=== PATIENT | female | born 1980 | race Two or more races ===

== ENCOUNTER 2025-09-27 11:35 | Emergency (ER) | payer MEDICAID, OTHER ==
[~2025-09-27] VITALS: Ht 172.7 cm; Wt 86.9 kg
--- NOTE | 2025-09-27 11:43 | ECG ---
[facility] Test Date: 2025-09-27 Test Time: 11:42:08 Pat Name: RAFAEL URIOSTEGUI Department: Room: Gender: F Tractor Operator Helper: GENE : 1980 Requested By: EMERGENCY EMERGENCY Order Number: [id number] Reading MD: Christiano Dominique Measurements Intervals [place] Rate: 107 P: 67 [place]: 142 QRS: 46 QRSD: 92 T: -44 QT: 333 QTc: 445 Interpretive Statements Sinus tachycardia Nonspecific T abnormalities, inferior leads Electronically Signed On 09-30-2025 15:41:54 PST by Christiano Dominique Please click the below link to view image of tracing.
[2025-09-27 12:12] LABS: Hematocrit 47.3 % (36.0-46.0); Hemoglobin 15.9 g/dL (12.2-16.2); Mean Corpuscular Hemoglobin 30.3 pg (28.0-32.0); Mean Corpuscular Volume 89.9 fL (80.0-100.0); Nucleated Red Blood Cells % 0.0 %
--- NOTE | 2025-09-27 12:17 | ED.PDOC ---
HPI Comments 45 y/o F, with no prior cardiac history presents to the ED for CC of chest pain. Patient states, she has been experiencing left-sided non-radiating chest pain with associated palpitations sudden onset, last night (09/26/25). Patient reports, to have restarted taking Wegovy for weight loss on Friday (09/23/25), and has had associated symptoms of intermittent nausea, vomiting, diarrhea since then. Patient denies shortness of breath, dizziness, headache, fever, chills, or cough. No other symptoms or modifying factors are present at this time. Chief Complaint: Chest Pain Time Seen by MD: 12:00 Reviewed Notes: Nurses Notes, Medications, Allergies Allergies: Coded Allergies: NO KNOWN ALLERGIES (Unverified , 09/27/25) Home Meds Active Scripts Ondansetron Odt 4MG Tab (ZOFRAN PO) 4 Mg Tb, 4 MG PO Q6HR for 3 Days, #12 TAB ODT TAB-DISSOLVE IN MOUTH, THEN SWALLOW Prov:CARLA CROWELL MD 09/27/25 Information Source: Patient Mode of Arrival: Ambulatory Severity: Moderate Timing: Hours Duration: Since onset Prehospital treatment: None Location: Chest (L) Radiation: No Radiation Onset: At Rest Cardiac Risk Factors: None PE Risk Factors: None History of: None Modifying Factors: Nothing Associated Signs and Symptoms: Palpitations Past Medical History PAST MEDICAL HISTORY: Denies Surgical History: Denies all surgeries 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 Hx Family History Family History: Unknown Social History Smoker: Non-Smoker Alcohol: Denies ETOH Use Drugs: Denies Drug Use Lives In: Home Constitutional: denies: chills, diaphoresis, fatigue, fever, malaise, sweats, weakness, others EENTM: denies: blurred vision, double vision, ear bleeding, ear discharge, ear drainage, ear pain, ear ringing, eye pain, eye redness, hearing loss, mouth pain, mouth swelling, nasal discharge, nose bleeding, nose congestion, nose pain, photophobia, tearing, throat pain, throat swelling, voice changes, others Respiratory: denies: cough, hemoptysis, orthopnea, SOB at rest, shortness of breath, SOB with excertion, stridor, wheezing, others Cardiovascular: reports: chest pain, palpitations; denies: dizzy spells, diaphoresis, Dyspnea on exertion, edema, irregular heart beat, left arm pain, lightheadedness, PND, syncope, others Gastrointestinal: reports: diarrhea, nausea, vomiting; denies: abdomen distended, abdominal pain, blood streaked bowels, constipated, dysphagia, difficulty swallowing, hematemesis, melena, poor appetite, poor fluid intake, rectal bleeding, rectal pain, others Genitourinary: denies: abnormal vagina bleeding, burning, dyspareunia, dysuria, flank pain, frequency, hematuria, incontinence, pain, , vagina discharge, urgency, others Neurological: denies: dizziness, fainting, headache, left sided numbness, left sided weakness, numbness, paresthesia, pre-existing deficit, right sided numbness, right sided weakness, seizure, speech problems, tingling, tremors, weakness, others Musculoskeletal: denies: back pain, gout, joint pain, joint swelling, muscle pain, muscle stiffness, neck pain, others Integumetry: denies: bruises, change in color, change in hair/nails, dryness, laceration, lesions, lumps, rash, wounds, others Allergic/Immunocompromised: denies: Difficulty Healing, Frequent Infections, Hives, Itching, others Hematologic/Lymphatic: denies: anemia, blood clots, easy bleeding, easy bruising, swollen glands, others Endocrine: denies: excessive hunger, excessive sweating, excessive thirst, excessive urination, flushing, intolerance to cold, intolerance to heat, unexplained weight gain, unexplained weight loss, others Psychiatric: denies: anxiety, bipolar disorder, depression, hopeless, panic disorder, schizophrenia, sleepless, suicidal, others All Other Systems: Reviewed and Negative Physical Exam General Appearance: None, Normal HEENT: Normal ENT Inspection, Pharynx Normal Neck: Non-Tender, Normal Inspection Respiratory: No Accessory Muscle Use, No Respiratory Distress, Normal Breath Sounds Cardiovascular: No Edema, Normal Peripheral Pulses, Regular Rate/Rhythm Breast Exam: Deferred Gastrointestinal: Non Tender, Normal Bowel Sounds, Soft Genitalia: Deferred Pelvic: Deferred Rectal: Deferred Extremities: Normal capillary refill, Normal inspection, Normal range of motion, Non-tender Neurologic: Alert, No Motor Deficits, No Sensory Deficits Cerebellar Function: Normal Reflexes: NOT DONE Skin: Normal Color Lymphatic: No Adenopathy EKG EKG : Pulse Rate (adult): 107 [place]: Normal Cardiac Rhythm: ST Block: None Hypertrophy: None ST: Normal Was a procedure done? Was a procedure done?: No CP Differential Dx Differential Diagnosis: Electrolyte Disorder, Sinus Tachycardia Differential Diagnosis: Chest Wall Pain, Costochondritis, Esophageal reflux/spasm, Gastritis X-Ray, Labs, Meds, VS Vital Signs Date Time Temp Pulse Resp B/P (MAP) Pulse Ox O2 Delivery O2 Flow Rate FiO2 09/27/25 17:14 107 09/27/25 15:40 105 16 118/90 (99) 97 09/27/25 13:59 102 09/27/25 13:52 98.0 110 16 126/92 (103) 97 98.0 09/27/25 13:52 110 09/27/25 12:34 102 09/27/25 11:42 107 09/27/25 11:41 98.0 108 19 116/77 98 98.0 Lab Test 09/27/25 16:20 09/27/25 14:53 09/27/25 13:04 09/27/25 11:48 Range/Units Urine Test Negative Negative Troponin I High Sensitivity < 3 L < 3 L < 3 L </=34 ng/L White Blood Count 14.0 H 4.4-10.8 10^3/uL Red Blood Count 5.25 H 4.0-5.20 10^6/uL Hemoglobin 15.9 12.2-16.2 g/dL Hematocrit 47.3 H 36.0-46.0 % Mean Corpuscular Volume 89.9 80.0-100.0 fL Mean Corpuscular Hemoglobin 30.3 28.0-32.0 pg Mean Corpuscular Hemoglobin Concent 33.7 32.0-36.0 g/dL Red Cell Distribution Width 13.5 11.8-14.3 % Platelet Count 219 140-450 10^3/uL Mean Platelet Volume 9.8 6.9-10.8 fL Neutrophils (%) (Auto) 77.0 37.0-80.0 % Lymphocytes (%) (Auto) 10.8 10.0-50.0 % Monocytes (%) (Auto) 8.7 0.0-12.0 % Eosinophils (%) (Auto) 3.0 0.0-7.0 % Basophils (%) (Auto) 0.5 0.0-2.0 % Neutrophils # (Auto) 10.8 H 1.6-8.6 10 ^3/uL Lymphocytes # (Auto) 1.5 0.4-5.4 10 ^3/uL Monocytes # (Auto) 1.2 0-1.3 10 ^3/uL Eosinophils # (Auto) 0.4 0-0.8 10 ^3/uL Basophils # (Auto) 0.1 0-0.2 10 ^3/uL Nucleated Red Blood Cells 0.0 % Sodium Level 141 136-145 mmol/L Potassium Level 3.9 3.5-5.1 mmol/L Chloride Level 101 98-107 mmol/L Carbon Dioxide Level 26 20-31 mmol/L Anion Gap 14 5-15 Blood Urea Nitrogen 10 9-23 mg/dL Creatinine 0.75 0.550-1.02 mg/dL Glomerular Filtration Rate Calc 100 >90 mL/min BUN/Creatinine Ratio 13.3 10.0-20.0 Serum Glucose 83 74-106 mg/dL Calcium Level 9.6 8.7-10.4 mg/dL Current Medications Medications (Trade) Dose Ordered Sig/Juan A Route Start Time Stop Time Status Last Admin Sodium Chloride 1,000 ml @ 1,000 mls/hr Q1H ONCE IV 09/27/25 12:15 09/27/25 13:14 DC 09/27/25 14:17 Famotidine (Pepcid Injection) 20 mg ONCE ONCE IV 09/27/25 12:15 09/27/25 12:16 DC 09/27/25 14:25 Ondansetron HCl (Zofran) 4 mg ONCE ONCE IV 09/27/25 12:15 09/27/25 12:16 DC 09/27/25 14:25 Al Hydrox/Mg Hydrox/Simethicone (Maalox Plus) 30 ml ONCE ONCE PO 09/27/25 12:15 09/27/25 12:16 DC 09/27/25 14:16 Lidocaine HCl (Xylocaine 2% Viscous) 10 ml ONCE ONCE PO 09/27/25 12:15 09/27/25 12:16 DC 09/27/25 14:17 Time of 1ST Reevaluation: 12:30 Reevaluation 1ST: Unchanged Patient Education/Counseling: Diagnosis, Treatment Family Education/Counseling: No Family Present SEPSIS Sepsis Screen Date sepsis recognized/suspect: Sep 27, 2025 Time Sepsis recognized/suspect: 1141 Recent Procedure: No On Antibiotic Therapy: No Respiratory Rate >20: No Heart Rate >90: Yes Temp<36 C (96.8 F) or >38.3 C: No SBP <90 or MAP <65 mmHG: No New Acute Mental Status Change: No Is the patient on CPAP, BIPAP,: No Physician Orders Chest Xray 1 View (09/27/25 17:57) Electrocardigram (09/27/25 12:36) Electrocardigram (09/27/25 14:36) Vital Signs Date Time Temp Pulse Resp B/P (MAP) Pulse Ox O2 Delivery O2 Flow Rate FiO2 09/27/25 17:14 107 09/27/25 15:40 105 16 118/90 (99) 97 09/27/25 13:59 102 09/27/25 13:52 98.0 110 16 126/92 (103) 97 98.0 09/27/25 13:52 110 09/27/25 12:34 102 09/27/25 11:42 107 09/27/25 11:41 98.0 108 19 116/77 98 98.0 Laboratory Tests Test 09/27/25 11:48 White Blood Count 14.0 10^3/uL (4.4-10.8) H Medications Medications Dose Ordered Sig/Juan A Route Start Time Stop Time Status Last Admin Dose Admin Al Hydrox/Mg Hydrox/Simethicone 30 ml ONCE ONCE PO 09/27/25 12:15 09/27/25 12:16 DC 09/27/25 14:16 Famotidine 20 mg ONCE ONCE IV 09/27/25 12:15 09/27/25 12:16 DC 09/27/25 14:25 Lidocaine HCl 10 ml ONCE ONCE PO 09/27/25 12:15 09/27/25 12:16 DC 09/27/25 14:17 Ondansetron HCl 4 mg ONCE ONCE IV 09/27/25 12:15 09/27/25 12:16 DC 09/27/25 14:25 Sodium Chloride 1,000 ml @ 1,000 mls/hr Q1H ONCE IV 09/27/25 12:15 09/27/25 13:14 DC 09/27/25 14:17 Departure 1 Departure Time of Disposition: 17:11 (45-year-old female presenting for evaluation of recurrent chest pain, palpitations, nausea, vomiting, diarrhea over the past 4 days. Patient reports symptoms starting after she took a Wegovy dose which she had not taken for a long time. She reports that day when she took it she started feeling unwell and then had some nausea and vomiting. Reports feeling better and then having GI symptoms recurring today. Given timing of symptoms pertinent medications could be medication related side effect. Patient now having palpitations, chest pain, seems likely atypical chest discomfort. Patient has a heart score of 1 based off of age, however, has no cardiac risk factors otherwise. Serial troponins within normal limits. Patient was treated for symptoms with 1 L normal saline IV fluid bolus, IV Pepcid, IV Zofran, oral Mylanta and viscous lidocaine. Feeling improved after interventions. Able to tolerate oral intake without further exacerbation. Patient recommended to discontinue any further Wegovy injections as it may have caused her symptoms. Will be given a prescription for Zofran to take as needed.) Impression: Primary Impression: Acute chest pain Additional Impression: Nausea & vomiting Disposition: 01 HOME / SELF CARE / HOMELESS Condition: Stable Additional Instructions: Your symptoms may have been related to recent Wegovy injections. Please discontinue any further doses and see if your symptoms resolve. e-Prescriptions Ondansetron Odt 4MG Tab (ZOFRAN PO) 4 Mg Tb 4 MG PO Q6HR for 3 Days, #12 TAB ODT TAB-DISSOLVE IN MOUTH, THEN SWALLOW Prov: CARLA CROWELL MD 09/27/25 Discharged With: Self Critical Care Note Critical Care Time?: No Stability Stability form required: No Heart Score Heart Score: Heart Score Response (Comments) Value History Slightly Suspicious 0 EKG Normal 0 Age 45-64 1 Risk Factors No known risk factors 0 Troponin Normal limit 0 Total 1 I personally scribed for CARLA CROWELL MD ([email or web address]) on 09/27/25 at 12:17. Electronically submitted by Betsey Escobedo ([email or web address]). CARLA CROWELL MD Sep 27, 2025 12:17
[2025-09-27 12:23] LABS: Chloride 101 mmol/L (98-107); Potassium 3.9 mmol/L (3.5-5.1); Sodium 141 mmol/L (136-145)
[2025-09-27 12:24] LABS: Anion Gap 14 (5-15); Carbon Dioxide 26 mmol/L (20-31)
[2025-09-27 12:25] LABS: Calcium 9.6 mg/dL (8.7-10.4)
[2025-09-27 12:30] LABS: BUN/Creatinine Ratio 13.3 (10.0-20.0); Blood Urea Nitrogen 10 mg/dL (9-23); Glucose 83 mg/dL (74-106)
[2025-09-27] MEDS: MAALOX PLUS or MAALOX 30 ML PO ONE (14:16)
[2025-09-27] MEDS: LIDOCAINE VISCOUS 2% 15ML UD PO ONE (14:17)
[2025-09-27] MEDS: SODIUM CHLORIDE 0.9% 1,000 ML IV ONE (14:17)
[2025-09-27] MEDS: ONDANSETRON HCL 4 MG/2 ML VIAL IV ONE (14:25)
[2025-09-27] MEDS: FAMOTIDINE (10MG/ML) 2ML VL IV ONE (14:25)
[2025-09-27] MEDS ORDERED: ZOFR4T PO (17:22)
--- NOTE | 2025-09-27 18:38 | DVH ---
CHEST RADIOGRAPH Indication: CP Technique: Single frontal view of the chest was obtained Comparison: None FINDINGS: Lines and Tubes: None Lungs: No focal consolidation. Pleura: No effusion. No pneumothorax. Cardiomediastinal contours: Unremarkable Bones: No acute osseous abnormality. IMPRESSION: 1. No acute cardiopulmonary disease.
[2025-09-27 19:09] VITALS: BP 133/95; PULSE 87; RESP 16; TEMP 98.1; O2SAT 100
--- NOTE | 2025-09-28 12:02 | ECG ---
[facility] Test Date: 2025-09-27 Test Time: 12:34:58 Pat Name: RAFAEL URIOSTEGUI Department: Room: Gender: F Rn Ortho: DARIO : 1980 Requested By: EMERGENCY EMERGENCY Order Number: [id number] Reading MD: Christiano Dominique Measurements Intervals [place] Rate: 102 P: 62 [place]: 140 QRS: 45 QRSD: 90 T: -31 QT: 328 QTc: 428 Interpretive Statements Sinus tachycardia Nonspecific T abnormalities, inferior leads Electronically Signed On 09-30-2025 15:41:59 PST by Christiano Dominique Please click the below link to view image of tracing.
--- NOTE | 2025-09-28 12:02 | ECG ---
[facility] Test Date: 2025-09-27 Test Time: 13:59:38 Pat Name: RAFAEL URIOSTEGUI Department: Room: Gender: F Senior Data Developer: MARSHA : 1980 Requested By: EMERGENCY EMERGENCY Order Number: [id number] Reading MD: Christiano Dominique Measurements Intervals [place] Rate: 102 P: 54 [place]: 143 QRS: 39 QRSD: 93 T: -32 QT: 339 QTc: 442 Interpretive Statements Sinus tachycardia Probable inferior infarct, old Electronically Signed On 09-30-2025 15:42:02 PST by Christiano Dominique Please click the below link to view image of tracing.
== END 2025-09-27 19:20 | disposition home or self-care (01) ==
LOC: ER 11:35
DX: R07.89 Other chest pain (principal); R11.2 Nausea with vomiting, unspecified; R00.2 Palpitations
CPT/HCPCS: 36415; 71045; 80048; 81025; 84484; 85025; 93005; 96361; 96374; 96375; 99285; J2405; J3490; J7030